=== PATIENT | male | born 1980 | race Caucasian/White ===

== ENCOUNTER 2022-10-12 10:54 | Emergency (ER) | payer OTHER ==
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
[2022-10-12] MEDS: HYDROmorphone 1 MG/ML CARPUJECT IM STA (15:02)
[2022-10-12] MEDS: KETOROLAC 60 MG/2 ML VIAL IM STA (15:02)
[2022-10-12 15:07] VITALS: BP 132/82
== END 2022-10-12 15:06 | disposition home or self-care (01) ==
LOC: ED 10:54
DX: M54.50 Low back pain, unspecified (principal)
CPT/HCPCS: 96372; 99282; 99284; J1170

== ENCOUNTER 2024-06-21 14:09 | Emergency (ER) | payer OTHER ==
[2024-06-21 14:32] VITALS: O2SAT 98
[2024-06-21 14:47] LABS: BASOPHILS # (AUTO) 0.1 10^3/uL (0.0-0.1); EOSINOPHILS # (AUTO) 0.1 10^3/uL (0.0-0.7); EOSINOPHILS % (AUTO) 2.1 %; HCT - HEMATOCRIT 42.8 % (42.0-52.0); HGB - HEMOGLOBIN 14.8 g/dL (14.0-18.0); LYMPHOCYTES # (AUTO) 2.3 10^3/uL (1.5-3.5); LYMPHOCYTES % (AUTO) 36.2 %; MEAN CORPUSCULAR HEMOGLOBIN 30.3 pg (27.0-31.0); MEAN CORPUSCULAR HGB CONC 34.6 g/dL (32.0-36.0); MEAN CORPUSCULAR VOLUME 87.5 fL (80.0-94.0); MEAN PLATELET VOLUME 9.9 fL (7.4-11.4); MONOCYTES # (AUTO) 0.8 10^3/uL (0.0-1.0); MONOCYTES % (AUTO) 12.4 %; PLT - PLATELET COUNT 230 10^3/uL (130-450); RED BLOOD COUNT 4.89 10^6/uL (4.70-6.10); RED CELL DISTRIBUTION WIDTH 12.7 % (12.0-15.0); WHITE BLOOD COUNT 6.3 x10^3/uL (4.8-10.8)
--- NOTE | 2024-06-21 14:53 | ED Physician Documentation ---
PD HPI CHEST PAIN - Stated complaint Stated Complaint: CHEST TIGHTNESS - Chief complaint Chief Complaint: Cardiac - Additional information Additional information: 44-year-old male with no pertinent past medical history aside from severe anxie ty and PTSD presents emergency department for chest pain. Patient says that last night while he was waiting in bed he felt like someone really heavy was sitting on his chest that lasted for about 2 minutes and then self resolved. 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 PD PAST MEDICAL HISTORY - Past Medical History Past Medical History: Yes Psych: Anxiety - Past Surgical History Past Surgical History: No - Present Medications Home Medications: Ambulatory Orders Medication Instructions Recorded Confirmed Cyclobenzaprine [Flexeril] 10 mg PO TID PRN #20 tablet 10/12/22 Ibuprofen [Motrin] 800 mg PO Q8H PRN #30 tablet 10/12/22 Lidocaine Patch 5% [Lidoderm Patch] 1 patch TOP DAILY PRN #10 patch 10/12/22 Oxycodone HCl/Acetaminophen 1 - 2 each PO Q6H PRN #14 tablet 10/12/22 [Percocet 5-325 mg Tablet] hydrOXYzine HCL [Hydroxyzine HCl] 25 mg PO TID PRN #20 tablet 06/21/24 - Allergies Allergies/Adverse Reactions: Allergies Allergy/AdvReac Type Severity Reaction Status Date / Time No Known Drug Allergies Allergy Verified 06/21/24 14:49 - Social History Does the pt smoke?: No Smoking Status: Never smoker Does the pt drink ETOH?: No Does the pt have substance abuse?: No - Immunizations Immunizations are current?: Yes - POLST Patient has POLST: No PD ED PE NORMAL - Vitals Vital signs reviewed: Yes - General General: Alert and oriented X 3, No acute distress, Well developed/nourished - HEENT HEENT: Atraumatic, PERRL - Neck Neck: Supple, no meningeal sign - Cardiac Cardiac: RRR - Respiratory Respiratory: No respiratory distress - Abdomen Abdomen: Normal bowel sounds, Soft, Non tender, Non distended, No organomegaly - Back Back: No CVA TTP, No spinal TTP - Derm Derm: Normal color, Warm and dry, No rash - Extremities Extremities: No edema, No calf tenderness / cord - Psych Psych: Normal mood Results - Vitals Vitals: Vital Signs - 24 hr 06/21/24 06/21/24 14:11 16:13 Temperature 36.8 C 36.5 C Heart Rate 64 59 L Respiratory 16 19 Rate Blood Pressure 150/82 H 164/84 H O2 Saturation 98 98 Oxygen O2 Source Room air - Labs Labs: Laboratory Tests 06/21/24 06/21/24 14:41 14:41 WBC 6.3 RBC 4.89 Hgb 14.8 Hct 42.8 MCV 87.5 MCH 30.3 MCHC 34.6 RDW 12.7 Plt Count 230 MPV 9.9 Neut # (Auto) 3.0 Lymph # (Auto) 2.3 [place] # (Auto) 0.8 Eos # (Auto) 0.1 Baso # (Auto) 0.1 Absolute Nucleated RBC 0.00 Nucleated RBC % 0.0 Sodium 139 Potassium 4.0 Chloride 105 Carbon Dioxide 27 Anion Gap 7.0 BUN 22 H Creatinine 1.0 Estimated GFR (MDRD) 82 L Glucose 90 Calcium 9.2 Total Bilirubin 0.5 AST 22 ALT 22 Alkaline Phosphatase 62 Troponin I High Sens 4.1 Total Protein 6.8 Albumin 4.3 Globulin 2.5 Albumin/Globulin Ratio 1.7 Lipase 48 - Rads (name of study) Chest x-ray Relevant Findings:: Final report received, EMP independent interpretation of test, Other (No acute cardiopulmonary abnormalities or findings.) PD Medical Decision Making - ED course ED course: 44-year-old male presents emergency department for chest pain. Exam without evidence of volume overload so doubt heart failure. EKG without signs of active ischemia. Given the timing of pain to ER presentation, single troponin was negative so doubt NSTEMI. Presentation not consistent with acute PE ( PERC negative),pneumothorax (not visualized on chest xr), thoracic aortic dissection, pericarditis, tamponade, pneumonia (no infectious symptoms, clear chest xr), myocarditis (no recent illness, neg trop). HEART score:3 so plan to discharge patient home with PMD follow up. Departure - Departure Disposition: Home, Self Care Clinical Impression: Chest pain, Anxiety Instructions: ED Stress React, ED Chest Pain Atypical Unkn Cause Prescriptions: hydrOXYzine HCL [Hydroxyzine HCl] 25 mg PO TID PRN #20 tablet PRN Reason: Anxiety Comments: Thank you for trusting us with your care. We have evaluated you for your chest pain with labs, EKG, chest x-ray and it does not appear that you are having any acute cardiac abnormalities at this point in time. please follow-up with your primary care provider about today's ER visit send prescription of hydroxyzine to help with your anxiety you can take this up to 3 times a day as needed for anxiety symptoms. If your chest pain comes back or gets any worse or if you start to develop sudden onset shortness of breath please present back to the emergency department for further evaluation. Forms: PCP List Discharge Date/Time: 06/21/24 16:14
[2024-06-21 15:07] LABS: ALBUMIN 4.3 g/dL (3.2-5.5); ALBUMIN/GLOBULIN RATIO 1.7 (1.0-2.2); BILIRUBIN,TOTAL 0.5 mg/dL (0.2-1.0); CALCIUM 9.2 mg/dL (8.5-10.3); TOTAL PROTEIN 6.8 g/dL (6.4-8.9)
[2024-06-21 15:09] LABS: TROPONIN I HIGH SENSITIVITY 4.1 ng/L (2.3-19.7)
--- NOTE | 2024-06-21 15:41 | XRAY Report ---
PROCEDURE: Chest 1V INDICATIONS: Chest Pain TECHNIQUE: One view of the chest was acquired. COMPARISON: None. FINDINGS: Surgical changes and devices: None. Lungs and pleura: No pleural effusions or pneumothorax. Lungs are clear. Mediastinum: Mediastinal contours appear normal. Heart size is normal. Bones and chest wall: No suspicious bony lesions. Overlying soft tissues appear unremarkable. IMPRESSION: No acute cardiopulmonary process. Reviewed by: Marito Coburn MD on 06/21/2024 3:40 PM PDT Approved by: Marito Coburn MD on 06/21/2024 3:40 PM PDT Station ID: [id number]
[2024-06-21 16:14] VITALS: BP 164/84
== END 2024-06-21 16:14 | disposition home or self-care (01) ==
LOC: ED 14:09
DX: R07.9 Chest pain, unspecified (principal); F41.9 Anxiety disorder, unspecified
CPT/HCPCS: 36415; 80053; 83690; 84484; 85025; 93005; 99284